=== PATIENT | female | born 1970 | race Caucasian/White ===

== ENCOUNTER 2020-09-08 09:41 | Outpatient (RCR) | payer MEDICAID ==
[~2020-09-08] VITALS: Ht 170.2 cm; Wt 127.7 kg
[2020-09-08] MEDS ORDERED: FEXO-46 PO (14:16)
[2020-09-08] MEDS ORDERED: FAMO20TA5 PO (14:16)
[2020-09-08] MEDS ORDERED: LUBI24CA6 PO (14:16)
[2020-09-08] MEDS ORDERED: RIVA20TA PO (14:16)
[2020-09-08] MEDS ORDERED: LURA40TA3 PO (14:16)
[2020-09-08] MEDS ORDERED: BUME2TAB7 PO (14:16)
[2020-09-08] MEDS ORDERED: PROM25TA14 PO (14:16)
[2020-09-08] MEDS ORDERED: MORP-68 PO (14:16)
[2020-09-08] MEDS ORDERED: AMIT75TA2 PO (14:16)
[2020-09-08] MEDS ORDERED: PANT40TA52 PO (14:16)
[2020-09-08] MEDS ORDERED: POTA10TA36 PO (14:16)
[2020-09-08] MEDS ORDERED: SUCR1TAB PO (14:16)
[2020-09-08] MEDS ORDERED: TIZA4TAB4 PO (14:16)
[2020-09-08] MEDS ORDERED: ATOR20TA66 PO (14:16)
== END 2020-09-08 10:18 | disposition home or self-care (01) ==
LOC: PREOP 09:41
PROVIDERS: ATTEND Orthopaedic Surgery
DX: Z01.818 Encounter for other preprocedural examination (principal)

== ENCOUNTER 2020-09-10 06:54 | Day surgery (SDC) | payer MEDICAID ==
--- NOTE | 2020-08-30 09:20 | HISTORY AND PHYSICAL ---
DATE OF SERVICE: ADMISSION HISTORY AND PHYSICAL This will be for outpatient surgery on 09/10/2020 for right trigger thumb release. HISTORY OF PRESENT ILLNESS: The patient is a 50-year-old right hand dominant female with complaints of right thumb catching and locking. She reports that this has been progressive in nature and worsening over the last several months. She reports it is activity limiting. Due to functional impairment and failure to improve with conservative measures, the patient elected to proceed with surgical intervention. REVIEW OF SYSTEMS: No chest pain, no shortness of breath, no dysuria. PAST MEDICAL HISTORY: Anxiety disorder, asthma, cerebrovascular accident, depression, edema, fibromyalgia, reflux, brain aneurysm, schizophrenia, DVT, allergic rhinitis, tobacco use, back pain, constipation, COPD, coronary artery disease, migraines, hypertension and osteoarthritis. PAST SURGICAL HISTORY: Carpal tunnel release, cholecystectomy, hysterectomy, eye surgery, bilateral elbows. FAMILY HISTORY: Significant for diabetes and kidney disease. PRIMARY CARE PROVIDER: MEDICATIONS: Amitiza, amitriptyline, aspirin, atorvastatin, Bumex, Carafate, allergy relief, Chantix, iron, Flovent, fluoxetine, isosorbide, Latuda, Lyrica, morphine, Narcan, pantoprazole, potassium, tizanidine, verapamil, Voltaren, Xarelto, Linzess. ALLERGIES: No known drug allergies. SOCIAL HISTORY: The patient denies alcohol and tobacco use. RADIOGRAPHS: Reveal no acute or chronic changes of the right hand and thumb. PHYSICAL EXAMINATION: GENERAL: The patient is well-developed, well-nourished, in no acute distress. HEENT: Normocephalic, atraumatic. Pupils are equal, round and reactive to light. Oropharynx is clear. NECK: Supple, no lymphadenopathy. LUNGS: Clear to auscultation bilaterally. HEART: Regular rate and rhythm. ABDOMEN: Soft, nontender, nondistended. EXTREMITIES: The right demonstrates full IP flexion and extension. Sensation is intact distally. She is tender over A1 daisy. She can demonstrate active triggering of the thumb, which reproduces her symptoms. IMPRESSION: Right trigger thumb. PLAN: Right thumb A1 daisy release. The risks, benefits, options, ramifications and recovery were discussed at length with the patient. She understands and wishes to proceed. Job ID: [id number] DocumentID: [id number] Dictated Date: 08/30/2020 08:51:18 [employer] Forms Developer Date: 08/30/2020 09:19:23 Dictated By: GUNNAR SALMERON MD
[~2020-09-10] VITALS: Ht 170 cm; Wt 127.7 kg
[~2020-09-10 06:54] MED LIST: AMIT75TA2 PO; ATOR20TA66 PO; BUME2TAB7 PO; FAMO20TA5 PO; FEXO-46 PO; LUBI24CA6 PO; LURA40TA3 PO; MORP-68 PO; PANT40TA52 PO; POTA10TA36 PO; PROM25TA14 PO; RIVA20TA PO; SUCR1TAB PO; TIZA4TAB4 PO
[2020-09-10] MEDS ORDERED: LACTATED RINGERS 1,000 ML IV PRN (07:00)
[2020-09-10] MEDS ORDERED: ceFAZolin INJECTION 1,000 MG in WATER (STERILE) FOR INJECTION 10 ML IV ONE (07:00)
[2020-09-10] MEDS ORDERED: LIDOCAINE PF 2% 5 ML (XYLOCAINE) VIAL ONE (07:07)
[2020-09-10] MEDS ORDERED: proPOfol 200 MG/20 ML (DIPRIVAN) VIAL IV ONE (07:07)
[2020-09-10] MEDS ORDERED: MIDAZOLAM 2 MG/2 ML (VERSED) VIAL ONE ×2 (07:07→07:32)
[2020-09-10] MEDS ORDERED: LIDOCAINE 1% INJ 20 ML 20 ML VIAL ONE (07:11)
[2020-09-10] MEDS ORDERED: BUPIVACAINE 0.5% 30 ML (SENSORCAINE) VIAL ONE (07:11)
[2020-09-10] MEDS ORDERED: CATHETER FLUSH 10 ML SYR IV PRN (07:15)
[2020-09-10 07:20] VITALS: BP 107/79
[2020-09-10] MEDS ORDERED: KETAMINE/NaCl 50 MG/5 ML SYRINGE (ED ONLY) ONE (07:24)
--- NOTE | 2020-09-10 07:28 | Progress Note-Pre Operative ---
Pre-Operative Progress Note H&P Reviewed The H&P was reviewed, patient examined and no changes noted. Date Seen by Provider: Sep 10, 2020 Time Seen by Provider: 07:20 Date H&P Reviewed: Sep 10, 2020 Time H&P Reviewed: 07:11 Pre-Operative Diagnosis: right trigger thumb GUNNAR SALMERON MD Sep 10, 2020 07:28
--- NOTE | 2020-09-10 07:29 | Progress Note-Post Operative ---
Post-Operative Progess Note Surgeon (s)/Erecting Engineer (s) Surgeon GUNNAR SALMERON MD Erecting Engineer: Naeem Og Pre-Operative Diagnosis right trigger thumb Post-Operative Diagnosis right trigger thumb Procedure & Operative Findings Date of Procedure 09/10/20 Procedure Performed/Findings right trigger thumb release Anesthesia Type MAC plus local Estimated Blood Loss Estimated blood loss (mL): minimal Specimens/Packing Specimens Removed none Packing: none GUNNAR SALMERON MD Sep 10, 2020 07:29
[2020-09-10] MEDS ORDERED: HYDROcodone/APAP 5 MG/325 MG (LORTAB) TAB PO PRN (07:30)
[2020-09-10] MEDS ORDERED: VARE1TAB22 PO (07:39)
[2020-09-10] MEDS ORDERED: ASPI-999 PO (07:39)
[2020-09-10] MEDS ORDERED: [UNRECOGNIZED DRUG - OTHER] PO (07:39)
[2020-09-10 08:12] VITALS: BP 111/71
[2020-09-10 08:20] VITALS: BP 105/84
[2020-09-10 08:30] VITALS: BP 95/77
[2020-09-10 08:40] VITALS: BP_SYST 101; BP_SYST 112; BP_DIAS 67; BP_DIAS 78
[2020-09-10] MEDS ORDERED: ACHD5005 PO (08:42)
[2020-09-10 09:10] VITALS: BP_SYST 112; BP_SYST 95; BP_DIAS 57; BP_DIAS 67
--- NOTE | 2020-09-10 09:14 | Anesthesia-General Post-Op ---
MAC Patient Condition Mental Status/LOC: Same as Preop Cardiovascular: Satisfactory Nausea/Vomiting: Absent Respiratory: Satisfactory Pain: Controlled Complications: Absent Post Op Complications Complications None Follow Up Care/Instructions Patient Instructions None needed. Anesthesiology Discharge Order Discharge Order Patient is doing well, no complaints, stable vital signs, no apparent adverse anesthesia problems. ARTURO STYLES DO Sep 10, 2020 09:14
--- NOTE | 2020-09-10 11:20 | OPERATIVE REPORT ---
DATE OF SERVICE: 09/10/2020 PREOPERATIVE DIAGNOSIS: Right trigger thumb. POSTOPERATIVE DIAGNOSIS: Right trigger thumb. PROCEDURE: Right thumb A1 daisy release. SURGEON: Cody Salmeron MD MORTICIAN HELPER: Naeem Og, who assisted throughout the procedure and closed the incision. ANESTHESIA: Monitored anesthesia care plus local by Dr. Shoemaker. TOURNIQUET TIME: 5 minutes at 250 mmHg. ESTIMATED BLOOD LOSS: Minimal. DRAINS: None. COMPLICATIONS: None. POSTOPERATIVE PLAN: Early range of motion. The patient was transferred to the recovery room awake and in stable condition. STATEMENT OF MEDICAL NECESSITY: The patient is a 50-year-old female with complaints of right thumb catching and locking. She was tender over A1 daisy. She can demonstrate active triggering. She had tried rest, activity modifications without relief. Due to functional impairment and failure to improve with conservative measures, the patient elected to proceed with surgical intervention. DESCRIPTION OF PROCEDURE: After risks and benefits of procedure were discussed and questions were answered, an informed consent was signed and placed on chart, the operative site was confirmed in the preoperative holding area initialed by the surgeon. The patient was then transferred to the operating room and after adequate levels of monitored anesthesia care were obtained, a timeout was called, confirming the operative site. Under sterile conditions, the incision site on the right thumb was injected with combination of plain lidocaine and plain Marcaine. The right upper extremity was prepped and draped in the usual sterile fashion with arm elevated, tourniquet inflated to 250 mmHg. A V-shaped incision was made over the A1 daisy. The underlying soft tissues were carefully dissected. The neurovascular bundles were identified and carefully protected throughout the procedure. The A1 daisy was released by pushing with the scalpel blade. There was some mild fraying of the flexor tendons, but no disruption noted. The thumb was taken through range of motion with full motion obtained and no catching or locking noted. The tourniquet was deflated. Pressure was used for hemostasis. Wound was copiously irrigated and closed with 4-0 nylon in a simple interrupted fashion. A soft dressing was applied and the patient was transferred to the recovery room awake and in stable condition. Job ID: [id number] DocumentID: [id number] Dictated Date: 09/10/2020 08:06:56 Hospitality Workers Date: 09/10/2020 11:20:10 Dictated By: CODY SALMERON MD
== END 2020-09-10 09:19 | disposition home or self-care (01) ==
LOC: SDC 06:54
PROVIDERS: ATTEND Orthopaedic Surgery
DX: M65.311 Trigger thumb, right thumb (principal); F41.9 Anxiety disorder, unspecified; F32.9 Major depressive disorder, single episode, unspecified; F20.9 Schizophrenia, unspecified; I10 Essential (primary) hypertension; K21.9 Gastro-esophageal reflux disease without esophagitis; I69.351 Hemiplegia and hemiparesis following cerebral infarction affecting right dominant side; E66.9 Obesity, unspecified; M79.7 Fibromyalgia; J44.9 Chronic obstructive pulmonary disease, unspecified; I25.10 Atherosclerotic heart disease of native coronary artery without angina pectoris; I48.91 Unspecified atrial fibrillation; M19.90 Unspecified osteoarthritis, unspecified site; K59.00 Constipation, unspecified; Z86.718 Personal history of other venous thrombosis and embolism; Z68.41 Body mass index [BMI] 40.0-44.9, adult; Z79.82 Long term (current) use of aspirin; Z79.51 Long term (current) use of inhaled steroids; Z79.891 Long term (current) use of opiate analgesic; Z79.1 Long term (current) use of non-steroidal anti-inflammatories (NSAID); Z79.01 Long term (current) use of anticoagulants; Z83.3 Family history of diabetes mellitus; Z84.1 Family history of disorders of kidney and ureter; Z98.890 Other specified postprocedural states
CPT/HCPCS: 87081